=== PATIENT | female | born 1990 | race Caucasian/White ===

== ENCOUNTER 2017-08-29 14:29 | Outpatient (CLI) | payer BC ==
[2017-08-29 15:52] VITALS: PULSE 113; RESP 16; TEMP 97.5
[2017-08-29 17:23] VITALS: BP 115/74
--- NOTE | 2017-08-30 09:14 | P.MSEPDOC ---
Presenting Problems - Arrival Data Date of Arrival on Unit: 08/29/17 Time of Arrival on Unit: 14:29 Mode of Transport: Ambulatory - Complaint OB-Reason for Admission/Chief Complaint: Other Comment: bp increased at work with dizzyness Medical History - Information : 2 Para: 1 Term: 1 : 0 Abortions: Spontaneous or Elective: 0 Number of Living Children: 1 - Gestational Age Gestational Age by DIONICIO (wks/days): 36 Weeks and 5 Days - History Comment: no complications to this point Review of Systems - Review of Systems Constitutional: No problems Breast: No problems ENT: No problems Cardiovascular: No problems Respiratory: No problems Gastrointestinal: No problems Genitourinary: No problems Musculoskeletal: No problems Neurological: No problems Skin: No problems Vital Signs - Temperature Temperature: 97.5 F Temperature Source: Tympanic - Pulse Apical Pulse Rate: 113 Pulse Assessment Method: Automatic Cuff - Respirations Respiratory Rate: 16 Oxygen Delivery Method: Room Air O2 Sat by Pulse Oximetry: 99 - Blood Pressure Right Arm Blood Pressure: 115/74 Blood Pressure Mean: 87 Blood Pressure Source: Automatic Cuff Medical Screen Scoring (Pre) - Cervical Exam Dilation: Exam Deferred - Uterine Contractions Frequency: N/A Duration: N/A Intensity: N/A - Maternal Vital Signs Signs of Preeclampsia: N/A - Pain Assessment Pain Scale Used: Numeric (1 - 10) Pain Intensity: 0 Pain Behavior: Vocalization - Maternal Trauma Maternal Trauma: N/A - Assessment Baseline FHR: 150 Heart Rate - NICHD Category: Category I (Normal) = 0 NST: Reactive Position: N/A Station: N/A - Total Score Total Score (Pre): 0 - Level of Risk Level of Risk: Low (0-5) Physician Notification (Pre) - Physician Notified Physician Notified Date: 08/29/17 Physician Notified Time: 15:30 Physician/Practitioner Notifed:: mikael Spoke With: mikael New Order Received: Yes (may discharge home with followup in office) - Notification Comment Comment: pt denies dizzyness at this time. no signs of pih. appt for friday. bp's wnl Disposition - Disposition OB Disposition: Discharge to home Discharge Date: 08/29/17 Discharge Time: 16:15 I agree with the RN Medical Screening Exam: Yes Risk & Benefit of care provided described in d/c instruction: Yes Diagnosis: DIZZINESS AND GIDDINESS
== END 2017-08-29 16:15 | disposition home or self-care (01) ==
LOC: FBPOP 14:29
PROVIDERS: ATTEND Obstetrics & Gynecology
DX: O26.893 Other specified pregnancy related conditions, third trimester (principal); R42 Dizziness and giddiness; R03.0 Elevated blood-pressure reading, without diagnosis of hypertension; Z3A.36 36 weeks gestation of pregnancy
CPT/HCPCS: 59025; 99215

== ENCOUNTER 2017-09-09 23:13 | Inpatient (IN) | payer BC ==
[2017-09-09] MEDS ORDERED: LACTATED RINGERS 1,000 ML IV SCH (23:45)
[2017-09-09] MEDS ORDERED: CITRIC ACID-SODIUM CITRATE 15 ML CUP PO ONE (23:52)
[2017-09-09] MEDS ORDERED: ceFAZolin IN SWFI 2 GM/20 ML SYRINGE IVP ONE (23:52)
[2017-09-10 00:02] LABS: Basophils % (A) 0 %; Eosinophils # (A) 0.2 k/uL (0-0.7); Eosinophils % (A) 2 %; HCT 29.1 % (34.0-46.0); HGB 9.5 gm/dL (11.4-16.0); Hypochromasia Moderate; Lymphocytes # (A) 1.7 k/uL (1.0-4.8); Lymphocytes % (A) 19 %; MCH 24.7 pg (25.0-35.0); MCHC 32.6 g/dL (31.0-37.0); MCV 75.6 fL (80.0-100.0); Mean Platelet Volume 7.9; Microcytosis Slight; Monocytes # (A) 0.3 k/uL (0-1.0); Monocytes % (A) 3 %; Neutrophils # (A) 6.8 k/uL (1.3-7.7); Neutrophils % (A) 74 %; Platelet Count 326 k/uL (150-450); Poikilocytosis Slight; RBC 3.84 m/uL (3.80-5.40); RDW 14.8 % (11.5-15.5); WBC 9.2 k/uL (3.8-10.6)
--- NOTE | 2017-09-10 00:25 | P.HPOB ---
History of Present Illness H&P Date: 09/10/17 Chief Complaint: Leaking of fluid This patient is a pleasant 27-year-old 2 para 1 female estimated date of confinement 09/21/2017 estimated gestational age 38-3/7 weeks presents to labor and delivery complaining gush of fluid at 11 PM. Patient's care is per Dr. Liz it appears she had a severe shoulder dystocia with her first baby and has a planned for this delivery. care appears to be uncomplicated. Patient's found to have gross rupture membranes for some years dilated in early labor. Review of Systems Genitourinary: Reports Menstruation: Reports amenorrhea Past Medical History Past Medical History: No Reported History Additional Past Medical History / Comment(s): Patient had a vaginal delivery with her first with a significant shoulder dystocia. History of Any Multi-Drug Resistant Organisms: None Reported Past Surgical History: No Surgical Hx Reported Additional Past Surgical History / Comment(s): myringotomy with tubes Past Anesthesia/Blood Transfusion Reactions: No Reported Reaction Smoking Status: Never smoker Past Alcohol Use History: None Reported Past Drug Use History: None Reported - Past Family History Mother Family Medical History: Diabetes Mellitus, Hypertension Medications and Allergies Home Medications Medication Instructions Recorded Confirmed Type Pnv,Calcium 72/Iron/Folic Acid 1 tab PO DAILY 02/12/15 09/09/17 History [ Plus Tablet] Allergies Allergy/AdvReac Type Severity Reaction Status Date / Time No Known Allergies Allergy Verified 09/09/17 23:32 Exam - Vital Signs Vital signs: Vital Signs Temp Pulse Resp BP Pulse Ox 09/09/17 23:33 96.8 F L 100 16 132/84 100 Intake and Output 09/09/17 09/09/17 09/10/17 14:59 22:59 06:59 Other: Weight 96.162 kg - OBG Physical Exam Abdomen: bowel sounds normal, no diffuse tenderness, no bruit present, no guarding noted, no hepatomegaly, no splenomegaly, no mass Vulva: both: normal Cervix: Cervix is 4 cm dilated with gross rupture membranes. Uterus: enlarged Results blood work shows she is A+, rubella immune, RPR nonreactive, hepatitis B negative, HIV nonreactive, ultrasounds appear to have been normal, she failed her one-hour but had a normal three-hour gtt. Result Diagrams: 09/09/17 23:45 Abnormal Lab Results - Last 24 Hours (Table) 09/09/17 Range/Units 23:45 Hgb 9.5 L (11.4-16.0) gm/dL Hct 29.1 L (34.0-46.0) % MCV 75.6 L (80.0-100.0) fL MCH 24.7 L (25.0-35.0) pg Assessment and Plan Assessment: This is a pleasant 27-year-old 2 para 1 female 38-3/7 weeks gestation with spontaneous rupture membranes and history of severe shoulder dystocia first patient and her physician, Dr. Liz, have discussed delivery plan is for primary section. Patient understands this surgery and risks including risks of infection, bleeding, possible injury bowel, bladder, vessels, and/or other organs, and/or risk of DVT and pulmonary embolism. All the patient's questions been answered and a written consent is obtained. Plan is primary low transverse section. (1) Third trimester Current Visit: Yes Status: Acute Code(s): Z34.93 - ENCNTR FOR SUPRVSN OF NORMAL PREG, UNSP, THIRD TRIMESTER SNOMED Code(s): 28071998 (2) Shoulder dystocia during labor and delivery, delivered Current Visit: Yes Status: Acute Code(s): O66.0 - OBSTRUCTED LABOR DUE TO SHOULDER DYSTOCIA SNOMED Code(s): 59414673 (3) Spontaneous rupture of amniotic membranes Current Visit: Yes Status: Acute Code(s): EVH1420 - SNOMED Code(s): 724478608 (4) Group beta Strep positive Current Visit: Yes Status: Acute Code(s): B95.1 - STREPTOCOCCUS, GROUP B, CAUSING DISEASES CLASSD ELSR SNOMED Code(s): 5536130553930
[2017-09-10] MEDS ORDERED: ONDANSETRON 4 MG/2 ML VIAL ONE (00:27)
[2017-09-10] MEDS ORDERED: KETOROLAC 30 MG/ML 1 ML VIAL ONE (00:27)
[2017-09-10] MEDS ORDERED: OXYTOCIN 10 UNIT/ML 1 ML VIAL ONE (00:27)
[2017-09-10] MEDS ORDERED: MORPHINE SULFATE (PF) 0.3 MG/0.3 ML SYR ONE (00:27)
[2017-09-10] MEDS ORDERED: fentaNYL (PF) 50 MCG/ML 2 ML AMP ONE (00:27)
[2017-09-10] MEDS ORDERED: NALBUPHINE 10 MG/ML VIAL (10ML MDV) ONE (00:27)
[2017-09-10] MEDS ORDERED: LACTATED RINGERS 1,000 ML BAG IV ONE (00:27)
[2017-09-10] MEDS ORDERED: MORPHINE SULFATE 4 MG/ML SYRINGE IVP PRN (00:56)
[2017-09-10] MEDS ORDERED: diphenhydrAMINE 50 MG/ML 1 ML VIAL IVP PRN (00:56)
[2017-09-10] MEDS ORDERED: NALOXONE 0.4 MG/ML 1 ML VIAL IV PRN ×2 (00:56→01:18)
[2017-09-10] MEDS ORDERED: ONDANSETRON 4 MG/2 ML VIAL IVP PRN (00:56)
[2017-09-10] MEDS ORDERED: ACETAMINOPHEN TAB 325 MG TAB PO PRN (01:18)
[2017-09-10] MEDS ORDERED: SIMETHICONE 80 MG CHEWABLE PO PRN (01:18)
[2017-09-10] MEDS ORDERED: ZOLPIDEM 5 MG TAB PO PRN (01:18)
[2017-09-10] MEDS ORDERED: LANOLIN CREAM 5 GM TUBE TOPICAL PRN (01:18)
[2017-09-10] MEDS ORDERED: METOCLOPRAMIDE 5 MG/ML 2 ML VIAL IVP PRN (01:18)
--- NOTE | 2017-09-10 01:29 | P.OP ---
Date of Procedure: 09/10/17 Preoperative Diagnosis: #1: 38-3/7 weeks . #2: Spontaneous rupture membranes. #3: Previous severe shoulder dystocia. 4: Active labor Postoperative Diagnosis: Same, macrosomia Procedure(s) Performed: Primary low transverse section. Anesthesia: spinal Surgeon: Ajit Bocanegra Tobacco Sprayer #1: Luis Antonio Artis Estimated Blood Loss (ml): 800 Pathology: none sent Condition: stable Disposition: floor Indications for Procedure: Please see dictated H&P for intimate details of this patient's admission. Brief summary is a pleasant 27-year-old 2 para 1 female 38-3/7 weeks gestation who presents to labor and delivery with spontaneous rupture membranes at 11:00 this evening. She's had previous severe shoulder dystocia and has discussed this with Dr. Liz and elected to proceed with section for delivery with this . Patient does understand the surgery and its risks including risks of infection, bleeding, possible injury bowel, bladder, vessels, and/or other organs. All the patient's questions are answered and written consent is obtained. Operative Findings: This is a vigorous viable male Apgars 8 and 9 delivery time was 0051 hours. Grossly appears normal. weight was 9 lbs. 0 oz. Description of Procedure: This patient has a Patino catheter placed to straight drain. She is subsequently taken to the operating room where she sat up and spinal anesthetic is administered without incident. With an adequate level of anesthesia she has abdominal prep and drape. Scalpels then taken and a Pfannenstiel skin incision is made. A second scalpel is taken down the fascia the fascia scored with a knife. Fascial incision extended bilaterally using the Vidales scissors. Fascia is then dissected off the rectus muscles sharply. Rectus muscles are and the peritoneum was identified and entered sharply. Peritoneal incision extended superior and improved without difficulty. Bladder blade is then placed. The bladder peritoneum was taken down off the lower uterine segment sharply. Using a scalpel then make a low transverse uterine incision. Hemostat is then used to enter the uterine cavity is loss of clear fluid. This incision is then extended bluntly. Infant's head is then gently guided through the incision with fundal pressure delivered. Mouth and nares are bulb suctioned. There is no evidence of nuchal cord. We then have delivery anterior and posterior shoulder and rest this 's body. This is a vigorous viable male Apgars are 8 and 9 delivery time was 0051 hours. has spontaneous respirations and good cry and grossly appears normal. After delivery of the infant the umbilical cord is doubly clamped and cut and appears to be trivascular. The infant is then handed off to the nurses in attendance. The placenta is then manually extracted intact. Uterus is then externalized and uterine incision demarcated with Chambers clamps. Uterine incision then closed using 0 Vicryl running locked fashion 2 layers. Good hemostasis is noted. Bladder peritoneum was then reapproximated using a 3-0 Vicryl. Good hemostasis again is noted. Excess fluid is removed from the abdomen and pelvis. Uterus, tubes, ovaries appear normal for term gestation. Uterus placed back into the abdomen. Parietal peritoneum was then demarcated with hemostats. Inspect uterine incision one more time and appears to be intact and hemostatic. Peritoneum was then closed using 0 Vicryl running fashion. Rectus muscles reapproximated in 0 Vicryl interrupted fashion. Fascia is then closed using 0 PDS in a running fashion. Fascial incision is intact and hemostatic. Subcutaneous tissues and closed using a 3-0 Vicryl. Skin is and closed using david. Sterile dressing is applied. All counts are correct 3. There are no complications. and mother are taken to the birthing suite in satisfactory condition.
[2017-09-10] MEDS ORDERED: OXYTOCIN 20 UNITS/1000 ML NS 1,000 ML IV SCH (01:30)
--- NOTE | 2017-09-10 01:32 | P.MSEPDOC ---
Presenting Problems - Arrival Data Date of Arrival on Unit: 09/09/17 Time of Arrival on Unit: 23:10 Mode of Transport: Wheelchair - Complaint OB-Reason for Admission/Chief Complaint: Rule Out SROM Comment: clear fluid from vagina at 2300 Medical History - Information : 2 Para: 1 Term: 1 : 0 Abortions: Spontaneous or Elective: 0 Number of Living Children: 1 - Gestational Age Gestational Age by DIONICIO (wks/days): 38 Weeks and 2 Days Review of Systems - Review of Systems Constitutional: No problems Breast: No problems ENT: No problems Cardiovascular: No problems Respiratory: No problems Gastrointestinal: No problems Genitourinary: No problems Musculoskeletal: No problems Neurological: No problems Skin: No problems Vital Signs - Temperature Temperature: 96.8 F Temperature Source: Temporal Artery Scan - Pulse Right Sitting Brachial Pulse Rate: 100 Pulse Assessment Method: Automatic Cuff - Respirations Respiratory Rate: 16 O2 Sat by Pulse Oximetry: 98 - Blood Pressure Right Arm Blood Pressure: 132/84 Blood Pressure Mean: 100 Blood Pressure Source: Automatic Cuff Medical Screen Scoring (Pre) - Cervical Exam Dilation: 4-7 cm = 2 Effacement: More than 50% = 2 Membranes: Ruptured = 3 - Uterine Contractions Frequency: Scheduled / = 6 Duration: N/A Intensity: N/A - Maternal Vital Signs Maternal Temperature: N/A Maternal Blood Pressure: N/A Signs of Preeclampsia: N/A Maternal Respirations: N/A - Pain Assessment Pain Intensity: 0 Pain Management Goal: 2 - Maternal Trauma Maternal Trauma: N/A - Assessment Baseline FHR: 130 Heart Rate - NICHD Category: Category I (Normal) = 0 NST: Reactive Position: N/A Station: N/A - Total Score Total Score (Pre): 13 - Level of Risk Level of Risk: High (10+) Physician Notification (Pre) - Physician Notified Physician Notified Date: 09/09/17 Physician Notified Time: 23:39 Physician/Practitioner Notifed:: Sahra Espinal Order Received: Yes - Notification Comment Comment: admit Disposition - Disposition OB Disposition: Admit, LDRP Suite I agree with the RN Medical Screening Exam: Yes Risk & Benefit of care provided described in d/c instruction: Yes Diagnosis: ENCOUNTER FOR FULL-TERM UNCOMPLICATED DELIVERY
[2017-09-10] MEDS ORDERED: SENNOSIDES-DOCUSATE SODIUM 1 EACH TAB PO ONE (09:00)
[2017-09-10] MEDS: LACTATED RINGERS 1,000 ML IV SCH ×2 (14:14→18:43)
[2017-09-10] MEDS: SENNOSIDES-DOCUSATE SODIUM 1 EACH TAB PO SCH (14:14)
[2017-09-10] MEDS: KETOROLAC 30 MG/ML 1 ML VIAL IVP PRN (22:22)
[2017-09-11] MEDS: SENNOSIDES-DOCUSATE SODIUM 1 EACH TAB PO SCH ×3 (00:31→20:00)
[2017-09-11] MEDS: LACTATED RINGERS 1,000 ML IV SCH ×2 (04:29→10:44)
[2017-09-11] MEDS: KETOROLAC 30 MG/ML 1 ML VIAL IVP PRN (07:43)
[2017-09-11 07:45] LABS: Basophils % (A) 0 %; Eosinophils # (A) 0.1 k/uL (0-0.7); Eosinophils % (A) 2 %; HGB 9.1 gm/dL (11.4-16.0); Hypochromasia Moderate; Lymphocytes # (A) 1.3 k/uL (1.0-4.8); Lymphocytes % (A) 15 %; MCH 23.9 pg (25.0-35.0); MCHC 31.4 g/dL (31.0-37.0); Mean Platelet Volume 8.2; Microcytosis Slight; Monocytes # (A) 0.3 k/uL (0-1.0); Monocytes % (A) 4 %; Neutrophils # (A) 7.2 k/uL (1.3-7.7); Neutrophils % (A) 79 %; Platelet Count 299 k/uL (150-450); Poikilocytosis Slight; RBC 3.82 m/uL (3.80-5.40); RDW 14.9 % (11.5-15.5); WBC 9.2 k/uL (3.8-10.6)
--- NOTE | 2017-09-11 08:02 | P.PNOBGPC ---
Subjective - Subjective Principal diagnosis: S/P 1*LTCS POD #1 Interval history: Pt seen and examined. Denies N/V, F/C, CP, SOB, calf pain. Patient reports: Reports appetite normal, Reports voiding normally, Reports pain well controlled, Reports ambulating normally [place]: doing well Objective - Vital Signs Latest vital signs: Vital Signs Temp Pulse Resp BP Pulse Ox 09/11/17 00:00 98.6 F 88 18 118/72 98 09/10/17 20:00 98.8 F 85 18 112/64 98 09/10/17 16:00 98.1 F 84 16 121/75 98 09/10/17 12:00 97.8 F 78 16 114/78 97 Intake and Output 09/10/17 09/11/17 09/11/17 22:59 06:59 14:59 Output Total 760 500 Balance -760 -500 Output: Urine 760 500 Other: # Voids 1 - Exam Lungs: bilateral: normal Chest: Normal S1, Normal S2 Extremities: Present: normal Abdomen: Present: normal appearance, soft. Absent: distention, tenderness Incision: Present: normal, dry, intact Uterus: Present: normal, firm - Labs Labs: Abnormal Lab Results - Last 24 Hours (Table) 09/11/17 Range/Units 07:22 Hgb 9.1 L (11.4-16.0) gm/dL Hct 29.0 L (34.0-46.0) % MCV 76.0 L (80.0-100.0) fL MCH 23.9 L (25.0-35.0) pg Assessment and Plan (1) Status post primary low transverse section Current Visit: Yes Status: Acute Code(s): Z98.891 - HISTORY OF UTERINE SCAR FROM PREVIOUS SURGERY SNOMED Code(s): 608467499 Plan: 1. increase ambulation. 2. po pain meds
--- NOTE | 2017-09-11 10:31 | P.PN ---
Progress Note - Text Date: 09/11/2017 Time: 0 721 The patient is status post section Vital signs stable VAS: 0-10 Patient has no complaints of pain. The patient incurred some minimal itching yesterday, this itching is now subsiding. Pain meds to be managed by service.
[2017-09-11] MEDS: Acetaminophen-Codeine 300-30mg TAB PO PRN ×2 (11:00→20:00)
[2017-09-11] MEDS: IBUPROFEN 600 MG TAB PO PRN (16:15)
[2017-09-12] MEDS: IBUPROFEN 600 MG TAB PO PRN (01:59)
[2017-09-12] MEDS: Acetaminophen-Codeine 300-30mg TAB PO PRN (07:57)
[2017-09-12] MEDS: SENNOSIDES-DOCUSATE SODIUM 1 EACH TAB PO SCH (07:57)
[2017-09-12 08:19] VITALS: BP 115/68; PULSE 90; RESP 16; TEMP 97.8
== END 2017-09-12 12:10 | disposition home or self-care (01) | DRG 766 ==
LOC: FBPOP 23:13 → 4FBP 23:42
PROVIDERS: ADMIT Obstetrics & Gynecology; ATTEND Obstetrics & Gynecology
PROC: 10D00Z1 Extraction of Products of Conception, Low, Open Approach (ICD-10-PCS; principal; 2017-09-10 00:05)
DX: O75.82 Onset (spontaneous) of labor after 37 completed weeks of gestation but before 39 completed weeks gestation, with delivery by (planned) cesarean section (principal); Z37.0 Single live birth; O34.211 Maternal care for low transverse scar from previous cesarean delivery; Z3A.38 38 weeks gestation of pregnancy; O99.824 Streptococcus B carrier state complicating childbirth; O36.63X0 Maternal care for excessive fetal growth, third trimester, not applicable or unspecified; Z79.899 Other long term (current) drug therapy; Z83.3 Family history of diabetes mellitus; Z82.49 Family history of ischemic heart disease and other diseases of the circulatory system
CPT/HCPCS: 59025; 84112; 85025; 86850; 86900; 86901; 99213

== ENCOUNTER 2019-12-27 09:47 | Outpatient (CLI) | payer BC ==
[2019-12-27 10:56] VITALS: BP 119/66; PULSE 83; RESP 16; TEMP 97
--- NOTE | 2020-01-03 08:41 | P.MSEPDOC ---
Presenting Problems - Arrival Data Date of Arrival on Unit: 12/27/19 Time of Arrival on Unit: 09:53 Mode of Transport: Ambulatory - Complaint OB-Reason for Admission/Chief Complaint: Possible Onset of Labor Medical History - Information : 3 Para: 2 Term: 2 : 0 Abortions: Spontaneous or Elective: 0 Number of Living Children: 2 - Gestational Age Gestational Age by DIONICIO (wks/days): 29 Weeks and 6 Days - History Complications: GDM Review of Systems - Review of Systems Constitutional: No problems Breast: No problems ENT: No problems Cardiovascular: No problems Respiratory: No problems Gastrointestinal: No problems Genitourinary: No problems Musculoskeletal: No problems Neurological: No problems Skin: No problems Vital Signs - Temperature Temperature: 97.0 F Temperature Source: Temporal Artery Scan - Pulse Right Pulse Rate: 83 Pulse Assessment Method: Automatic Cuff - Respirations Respiratory Rate: 16 Oxygen Delivery Method: Room Air O2 Sat by Pulse Oximetry: 98 - Blood Pressure Right Arm Blood Pressure: 119/66 Blood Pressure Mean: 83 Blood Pressure Source: Automatic Cuff Medical Screen Scoring (Pre) - Cervical Exam Dilation: 0 cm = 0 Membranes: Intact - Uterine Contractions Frequency: N/A Duration: N/A Intensity: N/A - Maternal Vital Signs Maternal Temperature: N/A Maternal Blood Pressure: N/A Signs of Preeclampsia: N/A Maternal Respirations: N/A - Maternal Trauma Maternal Trauma: N/A - Assessment - Baby A Baseline FHR: 135 Heart Rate - NICHD Category: Category I (Normal) = 0 NST: Reactive Position: N/A Station: N/A - Total Score - Baby A Total Score - Baby A: 0 - Total Score - Baby B Total Score - Baby B: 0 - Total Score - Baby C Total Score - Baby C: 0 - Level of Risk - Baby A Level of Risk - Baby A: Low (0-5) - Level of Risk - Baby B Level of Risk - Baby B: Low (0-5) - Level of Risk - Baby C Level of Risk - Baby C: Low (0-5) Physician Notification (Pre) - Physician Notified Physician Notified Date: 12/27/19 Physician Notified Time: 10:45 New Order Received: Yes (discharge home if closed) Disposition - Disposition OB Disposition: Discharge to home Discharge Date: 12/27/19 Discharge Time: 10:55 I agree with the RN Medical Screening Exam: Yes Risk & Benefit of care provided described in d/c instruction: Yes Diagnosis: FALSE LABOR BEFORE 37 COMPLETED WEEKS OF GEST, THIRD TRI
== END 2019-12-27 10:55 | disposition home or self-care (01) ==
LOC: FBPOP 09:47
PROVIDERS: ATTEND Obstetrics & Gynecology
DX: O47.03 False labor before 37 completed weeks of gestation, third trimester (principal); Z3A.29 29 weeks gestation of pregnancy
CPT/HCPCS: 59025; 99213

== ENCOUNTER 2020-02-12 02:54 | Inpatient (IN) | payer BC ==
[2020-02-12] MEDS ORDERED: LACTATED RINGERS 1,000 ML IV ONE (03:20)
[2020-02-12] MEDS ORDERED: CITRIC ACID-SODIUM CITRATE 15 ML CUP PO ONE (03:20)
[2020-02-12] MEDS ORDERED: LACTATED RINGERS 1,000 ML IV SCH (03:30)
[2020-02-12 03:48] LABS: Glucose,Whole Blood 97 mg/dL (75-99)
[2020-02-12] MEDS ORDERED: KETOROLAC 15 MG/ML 1 ML VIAL ONE (04:17)
[2020-02-12] MEDS ORDERED: ONDANSETRON 4 MG/2 ML VIAL ONE (04:17)
[2020-02-12] MEDS ORDERED: OXYTOCIN 10 UNIT/ML 1 ML VIAL ONE (04:17)
[2020-02-12] MEDS ORDERED: MORPHINE SULFATE (PF) 0.3 MG/0.3 ML SYR ONE (04:17)
[2020-02-12 04:24] LABS: Basophils % (A) 0 %; Eosinophils # (A) 0.1 k/uL (0-0.7); Eosinophils % (A) 2 %; HCT 33.6 % (34.0-46.0); HGB 10.6 gm/dL (11.4-16.0); Hypochromasia Slight; Lymphocytes # (A) 2.1 k/uL (1.0-4.8); Lymphocytes % (A) 28 %; MCH 24.2 pg (25.0-35.0); MCHC 31.5 g/dL (31.0-37.0); MCV 76.9 fL (80.0-100.0); Mean Platelet Volume 8.3; Microcytosis Slight; Monocytes # (A) 0.3 k/uL (0-1.0); Monocytes % (A) 4 %; Neutrophils # (A) 4.9 k/uL (1.3-7.7); Neutrophils % (A) 64 %; Platelet Count 298 k/uL (150-450); RBC 4.37 m/uL (3.80-5.40); RDW 14.8 % (11.5-15.5); WBC 7.6 k/uL (3.8-10.6)
--- NOTE | 2020-02-12 04:29 | P.HPOB ---
History of Present Illness H&P Date: 02/12/20 Chief Complaint: Spontaneous rupture of membranes This is a 29-year-old female 3 para 2 with an estimated date of confinement of 03/07/2020, estimated gestational age of 36-4/7 weeks, who presents to labor and delivery with complaints of spontaneous rupture of membra samy with clear fluid noted. She is feeling irregular contractions. Her course has been complicated by gestational diabetes on metformin. She states her fasting sugars have been slightly high. course has otherwise been uncomplicated. She is scheduled for a repeat section due to history of macrosomia and a severe shoulder dystocia with her first delivery. labs: GC/chlamydia/Trichomonas-negative Hepatitis B surface antigen-negative RPR-nonreactive Rubella-immune Blood type-A+ Antibody screen-negative Hemoglobin-11.9 Random glucose-78 Obstetrical ultrasound-normal anatomy One hour Glucola-165 Three-hour Glucola-2 values high Group B streptococcus-negative Obstetrical history: . History of 1 vaginal delivery at term with severe shoulder dystocia. Second delivery was an elective section. Gynecologic history: Noncontributory Social history: She is . She works at a [employer]. Review of Systems Constitutional: Denies chills, Denies fever Eyes: denies blurred vision, denies pain Ears, nose, mouth and throat: Denies headache, Denies sore throat Cardiovascular: Denies chest pain, Denies shortness of breath Respiratory: Denies cough Gastrointestinal: Reports abdominal pain (Irregular contractions) Genitourinary: Reports pelvic pain Musculoskeletal: Reports low back pain Integumentary: Denies pruritus, Denies rash Neurological: Denies numbness, Denies weakness Psychiatric: Denies anxiety, Denies depression Past Medical History Past Medical History: Diabetes Mellitus (Gestational) Additional Past Medical History / Comment(s): Patient had a vaginal delivery with her first with a significant shoulder dystocia and C/S with second History of Any Multi-Drug Resistant Organisms: None Reported Past Surgical History: Section Additional Past Surgical History / Comment(s): myringotomy with tubes Past Anesthesia/Blood Transfusion Reactions: No Reported Reaction Past Psychological History: No Psychological Hx Reported Smoking Status: Never smoker Past Alcohol Use History: None Reported Past Drug Use History: None Reported - Past Family History Mother Family Medical History: Diabetes Mellitus, Hypertension Medications and Allergies Home Medications Medication Instructions Recorded Confirmed Type Pnv,Calcium 72/Iron/Folic Acid 1 tab PO DAILY 02/12/15 02/12/20 History [ Plus Tablet] Iron 18 mg PO DAILY 12/27/19 02/12/20 History metFORMIN HCL [Glucophage] 1 PO DAILY 02/12/20 History Allergies Allergy/AdvReac Type Severity Reaction Status Date / Time No Known Allergies Allergy Verified 12/27/19 09:50 Exam Osteopathic Statement: *. No significant issues noted on an osteopathic structural exam other than those noted in the History and Physical/Consult. Vital Signs Temp Pulse Resp BP Pulse Ox 02/12/20 03:36 98.8 F 89 18 133/91 100 Intake and Output 02/11/20 02/11/20 02/12/20 14:59 22:59 06:59 Other: Weight 99.79 kg HEENT: Within normal limits Heart: Regular rate and rhythm Lungs: Clear to auscultation bilaterally Abdomen: Cervix: 2 cm/thick/-2 station. Positive amnisure with grossly ruptured clear fluid. heart tones: Category 1 Contractions: Every 2-5 minutes Extremities: Negative Homans Assessment and Plan (1) Previous delivery affecting Current Visit: Yes Status: Acute Code(s): O34.219 - MATERNAL CARE FOR UNSP TYPE SCAR FROM PREVIOUS DEL SNOMED Code(s): 070410439 (2) Gestational diabetes mellitus (GDM) controlled on oral hypoglycemic drug Current Visit: Yes Status: Acute Code(s): O24.415 - GESTATNL DIABETES IN PREG, CTRL BY ORAL HYPOGLYCEMIC DRUGS SNOMED Code(s): 39646897 (3) Spontaneous rupture of amniotic membranes Current Visit: No Status: Acute Code(s): GQR9363 - SNOMED Code(s): 342590651 Plan: Proceed with repeat section. Will monitor sugars. I have discussed the risks, benefits, and alternative therapies for the above- mentioned procedure and for both sedation/anesthesia as well as necessary blood products administration, if indicated, as they pertain to this patient. The patient has indicated her understanding and acceptance of the risks and procedures discussed.
--- NOTE | 2020-02-12 05:16 | P.OP ---
Date of Procedure: 02/12/20 Preoperative Diagnosis: 1. Intrauterine at 36-4/7 weeks. 2. History of previous section. 3. Gestational diabetes on metformin. 4. Active labor. Postoperative Diagnosis: Same Procedure(s) Performed: Repeat low transverse section Anesthesia: spinal (Duramorph) Surgeon: Chantell Cue[employer] Machine Set Up Operator #1: Luis Antonio Artis Estimated Blood Loss (ml): 500 Pathology: other (Placenta) Condition: stable Disposition: floor Indications for Procedure: This is a 29-year-old female 3 para 2 at 36-4/7 weeks who presented with spontaneous rupture of membranes and contractions. She has a history of a previous section and has consented to repeat section. I have discussed the risks, benefits, and alternative therapies for the above- mentioned procedure and for both sedation/anesthesia as well as necessary blood products administration, if indicated, as they pertain to this patient. The patient has indicated her understanding and acceptance of the risks and procedures discussed. Operative Findings: A viable male infant is noted in the vertex presentation with nuchal cord times one. scores are 8 at 1 minute and 8 at 5 minutes and weight is 6 lbs. 9 oz. Normal uterus tubes and ovaries are noted. Description of Procedure: The patient is taken to the operating room where she is placed in the dorsal supine position with leftward tilt after spinal Duramorph anesthesia is given. She is prepped and draped in the normal sterile fashion. Skin was tested and found to be adequately anesthetized. A Pfannenstiel skin incision was made with a scalpel through the previous laparotomy scar. A second knife was used to carry the incision down to the underlying layer of fascia. The fascia was nicked in the midline with a scalpel and then extended laterally bilaterally with Vidales scissors. The anterior lip of the fascia was grasped with 2 Ashok clamps and then dissected off the underlying rectus muscle in the midline with Vidales scissors. The inferior aspect of the fascial incision was grasped with 2 Ashok clamps and dissected off the underlying rectus muscle and the midline with Vidales scissors. Next the peritoneum layer was tented up with 2 hemostats and then entered sharply with the scalpel. The incision is extended superiorly and inferiorly with Metzenbaum scissors. Next a DeLee retractor is placed. The vesicouterine peritoneum is entered sharply with Metzenbaum scissors and extended laterally bilaterally with Metzenbaum scissors and then the bladder flap is pushed inferiorly. The lower uterine segment is incised in transverse fashion with the scalpel and then bluntly entered with a hemostat. Clear fluid is noted. The incision was then extended laterally bilaterally with 2 fingers. Next the 's head is delivered through the incision. Nose and mouth are bulb suctioned. Nuchal cord 1 is reduced around the infant's head. The remainder of the is easily delivered and placed on mother's abdomen. Cord is clamped and cut. Infant is taken to warmer by nursing staff. Uterine fundus is gently massaged and placenta is delivered manually. Uterus is exteriorized and cleared of all clots and debris. Uterine incision is closed with 0 Vicryl suture in a running locked fashion. A second layer of 0 Vicryl suture is used in a running fashion for hemostasis. The vesicouterine peritoneum was not reapproximated but was noted to be hemostatic. Posterior cul-de-sac is suctioned of all clots and debris. Uterus is returned to the abdomen. Incision is noted to be hemostatic. Peritoneal layer is closed with 0 Vicryl suture in a running fashion. Muscle layer is reapproximated with 0 Vicryl suture in interrupted fashion. Fascia layer is then closed with 0 PDS suture with 2 sutures meeting in the midline and the knots buried in either side and in the midline. The subcutaneous tissue was then closed with 2-0 Vicryl suture. Skin layer was then closed with david. All sponge and needle counts are correct. The patient is taken to recovery room in stable condition.
[2020-02-12] MEDS ORDERED: ONDANSETRON 4 MG/2 ML VIAL IVP PRN (05:37)
[2020-02-12] MEDS ORDERED: diphenhydrAMINE 50 MG CAP PO PRN (05:37)
[2020-02-12] MEDS ORDERED: LANOLIN CREAM 5 GM TUBE TOPICAL PRN (05:37)
[2020-02-12] MEDS ORDERED: diphenhydrAMINE 50 MG/ML 1 ML VIAL IVP PRN (05:37)
[2020-02-12] MEDS ORDERED: SIMETHICONE 80 MG CHEWABLE PO PRN (05:37)
[2020-02-12] MEDS ORDERED: HYDROcodone/APAP 7.5-325MG 1 EACH TAB PO PRN (05:37)
[2020-02-12] MEDS ORDERED: diphenhydrAMINE 25 MG CAP PO PRN (05:37)
[2020-02-12] MEDS ORDERED: METOCLOPRAMIDE 5 MG/ML 2 ML VIAL IVP PRN (05:37)
[2020-02-12] MEDS ORDERED: ACETAMINOPHEN TAB 325 MG TAB PO PRN (05:37)
[2020-02-12] MEDS ORDERED: NALOXONE 0.4 MG/ML 1 ML VIAL IV PRN (05:37)
[2020-02-12] MEDS ORDERED: ZOLPIDEM 5 MG TAB PO PRN (05:37)
[2020-02-12] MEDS: LACTATED RINGERS 1,000 ML IV SCH ×3 (06:17→21:50)
[2020-02-12] MEDS ORDERED: OXYTOCIN 20 UNITS/1000 ML NS 1,000 ML IV SCH (07:00)
[2020-02-12] MEDS: diphenhydrAMINE 50 MG/ML 1 ML VIAL IVP PRN ×2 (07:27→13:39)
[2020-02-12] MEDS: SENNOSIDES-DOCUSATE SODIUM 1 EACH TAB PO SCH ×2 (13:40→20:43)
[2020-02-12] MEDS: PRENATAL VIT-IRON-FOLIC ACID 1 EACH CAP PO SCH (13:40)
[2020-02-12] MEDS: NON FORMULARY DRUG (Iron [Iron] 18 MG Tablet) PO SCH (13:40)
[2020-02-12] MEDS: KETOROLAC 15 MG/ML 1 ML VIAL IVP PRN (20:43)
[2020-02-13] MEDS: KETOROLAC 15 MG/ML 1 ML VIAL IVP PRN (06:53)
[2020-02-13 06:54] LABS: Basophils % (A) 0 %; Eosinophils # (A) 0.1 k/uL (0-0.7); Eosinophils % (A) 2 %; HCT 29.2 % (34.0-46.0); HGB 9.9 gm/dL (11.4-16.0); Lymphocytes % (A) 15 %; MCH 25.6 pg (25.0-35.0); MCHC 33.8 g/dL (31.0-37.0); MCV 75.7 fL (80.0-100.0); Mean Platelet Volume 8.3; Microcytosis Slight; Monocytes # (A) 0.3 k/uL (0-1.0); Monocytes % (A) 4 %; Neutrophils # (A) 5.4 k/uL (1.3-7.7); Neutrophils % (A) 78 %; Platelet Count 250 k/uL (150-450); RBC 3.85 m/uL (3.80-5.40); RDW 14.7 % (11.5-15.5)
--- NOTE | 2020-02-13 07:59 | P.PN ---
Progress Note - Text Date: 02/13/2020 Time: 07:47 The patient is status post section Vital signs stable VAS:[ 0-10] Patient has no complaints of pain. The patient incurred some minimal itching and nausea yesterday, the itching and nausea have since subsided. Pain meds to be managed by service.
[2020-02-13] MEDS: SENNOSIDES-DOCUSATE SODIUM 1 EACH TAB PO SCH ×2 (08:41→19:18)
[2020-02-13] MEDS: IBUPROFEN 600 MG TAB PO PRN ×2 (10:40→16:01)
--- NOTE | 2020-02-13 11:58 | P.PNOBGPC ---
Subjective - Subjective Principal diagnosis: Status post repeat section POD #1 Interval history: Patient is doing well. She is ambulating. She is passing a small amount of flatus. Denies any bowel movement yet. Lochia is minimal. Pain is well- controlled. Baby is in level I nursery currently. Patient reports: Reports appetite normal, Reports voiding normally, Reports pain well controlled, Reports ambulating normally [place]: doing well, other (In level I nursery) Objective - Vital Signs Latest vital signs: Vital Signs Temp Pulse Resp BP Pulse Ox 02/13/20 08:00 98.2 F 87 14 123/82 02/13/20 04:00 98.2 F 77 16 104/68 02/13/20 00:00 98.2 F 74 16 111/72 02/12/20 15:39 97.8 F 81 16 126/80 02/12/20 12:00 98.3 F 75 16 128/68 98 Intake and Output 02/12/20 02/13/20 02/13/20 22:59 06:59 14:59 Intake Total 120 Output Total 300 Balance -180 Intake: Oral 120 Output: Urine 300 - Exam Extremities: Present: normal. Absent: edema Abdomen: Present: normal appearance, soft (Positive bowel sounds 4). Absent: distention, tenderness Incision: Present: normal, dry, intact. Absent: erythematous Uterus: Present: normal, firm. Absent: tenderness - Labs Labs: Abnormal Lab Results - Last 24 Hours (Table) 02/13/20 Range/Units 06:30 Hgb 9.9 L (11.4-16.0) gm/dL Hct 29.2 L (34.0-46.0) % MCV 75.7 L (80.0-100.0) fL Assessment and Plan Assessment: Status post repeat low transverse section postoperative day #1 (1) Previous delivery affecting Current Visit: Yes Status: Acute Code(s): O34.219 - MATERNAL CARE FOR UNSP TYPE SCAR FROM PREVIOUS DEL SNOMED Code(s): 083054964 (2) Gestational diabetes mellitus (GDM) controlled on oral hypoglycemic drug Current Visit: Yes Status: Acute Code(s): O24.415 - GESTATNL DIABETES IN PREG, CTRL BY ORAL HYPOGLYCEMIC DRUGS SNOMED Code(s): 44272699 (3) Spontaneous rupture of amniotic membranes Current Visit: No Status: Acute Code(s): ODY9223 - SNOMED Code(s): 925026357 Plan: Continue postoperative and care. Encouraged ambulation. Advance diet as tolerated.
[2020-02-13 16:03] VITALS: RESP 16
[2020-02-13] MEDS: HYDROcodone/APAP 5-325MG 1 EACH TAB PO PRN ×2 (18:08→22:40)
[2020-02-13] MEDS: NON FORMULARY DRUG (Iron [Iron] 18 MG Tablet) PO SCH (18:10)
[2020-02-13] MEDS: PRENATAL VIT-IRON-FOLIC ACID 1 EACH CAP PO SCH (18:10)
[2020-02-14] MEDS: HYDROcodone/APAP 5-325MG 1 EACH TAB PO PRN ×3 (06:02→23:51)
[2020-02-14] MEDS: SENNOSIDES-DOCUSATE SODIUM 1 EACH TAB PO SCH ×2 (07:57→20:35)
[2020-02-14] MEDS: PRENATAL VIT-IRON-FOLIC ACID 1 EACH CAP PO SCH (10:05)
[2020-02-14] MEDS: NON FORMULARY DRUG (Iron [Iron] 18 MG Tablet) PO SCH (10:06)
[2020-02-14] MEDS: IBUPROFEN 600 MG TAB PO PRN ×2 (12:09→20:33)
[2020-02-15] MEDS: IBUPROFEN 600 MG TAB PO PRN ×2 (06:43→16:18)
--- NOTE | 2020-02-15 07:51 | P.PNOBGPC ---
Subjective - Subjective Principal diagnosis: S/P RLTCS POD #2 Interval history: Pt seen and examined. Denies N/V, F/C, CP, SOB, calf pain. Patient reports: Reports appetite normal, Reports voiding normally, Reports pain well controlled, Reports ambulating normally [place]: doing well Objective - Vital Signs Latest vital signs: Vital Signs Temp Pulse Resp BP Pulse Ox 02/15/20 00:13 98.0 F 82 16 125/80 98 02/14/20 15:41 98.1 F 75 16 135/67 02/14/20 12:00 97.7 F 74 16 140/89 02/14/20 07:53 98.1 F 73 16 136/90 98 - Exam Lungs: bilateral: normal Chest: Normal S1, Normal S2 Extremities: Present: normal Abdomen: Present: normal appearance, soft. Absent: distention, tenderness Incision: Present: normal, dry, intact Uterus: Present: normal, firm Assessment and Plan (1) Status post repeat low transverse section Current Visit: Yes Status: Acute Code(s): Z98.891 - HISTORY OF UTERINE SCAR FROM PREVIOUS SURGERY SNOMED Code(s): 515380200 Plan: 1. increase ambulation 2. cont pain control
--- NOTE | 2020-02-15 07:53 | P.PNOBGPC ---
Subjective - Subjective Principal diagnosis: S/P RLTCS POD #3 Interval history: Pt seen and examined. c/o cold sore starting. Denies N/V, F/C, CP, SOB, calf pain Patient reports: Reports appetite normal, Reports voiding normally, Reports pain well controlled, Reports ambulating normally : doing well Objective - Vital Signs Latest vital signs: Vital Signs Temp Pulse Resp BP Pulse Ox 02/15/20 00:13 98.0 F 82 16 125/80 98 02/14/20 15:41 98.1 F 75 16 135/67 02/14/20 12:00 97.7 F 74 16 140/89 02/14/20 07:53 98.1 F 73 16 136/90 98 - Exam Lungs: bilateral: normal Chest: Normal S1, Normal S2 Extremities: Present: normal Abdomen: Present: normal appearance, soft. Absent: distention, tenderness Incision: Present: normal, dry, intact Uterus: Present: normal, firm Assessment and Plan (1) Status post repeat low transverse section Current Visit: Yes Status: Acute Code(s): Z98.891 - HISTORY OF UTERINE SCAR FROM PREVIOUS SURGERY SNOMED Code(s): 765070187 (2) Cold sore Current Visit: Yes Status: Acute Code(s): B00.1 - HERPESVIRAL VESICULAR DERMATITIS SNOMED Code(s): 9342206 Plan: 1. valtrex for cold sore 2. cont po care 3. possible d/c home later today
[2020-02-15] MEDS: HYDROcodone/APAP 5-325MG 1 EACH TAB PO PRN (08:55)
[2020-02-15] MEDS: SENNOSIDES-DOCUSATE SODIUM 1 EACH TAB PO SCH ×2 (08:56→21:23)
[2020-02-15] MEDS: PRENATAL VIT-IRON-FOLIC ACID 1 EACH CAP PO SCH (09:01)
[2020-02-15] MEDS: valACYclovir HCL 1,000 MG TABLET PO SCH (09:01)
[2020-02-15] MEDS: NON FORMULARY DRUG (Iron [Iron] 18 MG Tablet) PO SCH (09:02)
[2020-02-16] MEDS: HYDROcodone/APAP 5-325MG 1 EACH TAB PO PRN (00:17)
[2020-02-16] MEDS: IBUPROFEN 600 MG TAB PO PRN (07:35)
[2020-02-16 07:47] VITALS: BP 136/85; PULSE 71; TEMP 98.3
--- NOTE | 2020-02-16 07:59 | P.DS ---
Providers Date of admission: 02/12/20 03:17 Expected date of discharge: 02/16/20 Attending physician: Evette Liz Primary care physician: Stated None - Discharge Diagnosis(es) (1) Status post repeat low transverse section Current Visit: Yes Status: Acute (2) Cold sore Current Visit: Yes Status: Acute Hospital Course: Pt presented with SROM. She underwent a repeat low transverse . PO course was uncomplicated. She is ambulating and voiding without difficulty. Elisa erating a reg diet, passing flatus and pain is well controlled. she denies N/V, F/C, CP, SOB or calf pain. She will be discharged home POD #4 in stable condition to follow up with me in 1 week. Plan - Discharge Summary New Discharge Prescriptions: New Ibuprofen [Motrin] 600 mg PO Q6HR PRN #30 tab PRN Reason: Mild Pain Or Fever >= 100.5 HYDROcodone/APAP 7.5-325MG [Newcomb 7.5-325] 1 each PO Q6H PRN #12 tab PRN Reason: Severe Pain valACYclovir HCL [Valtrex] 1,000 mg PO DAILY 3 Days #3 tab No Action Pnv,Calcium 72/Iron/Folic Acid [ Plus Tablet] 1 tab PO DAILY Iron 18 mg PO DAILY metFORMIN HCL [Glucophage] 1 PO DAILY Discharge Medication List Pnv,Calcium 72/Iron/Folic Acid [ Plus Tablet] 1 tab PO DAILY 02/12/15 [History] Iron 18 mg PO DAILY 12/27/19 [History] metFORMIN HCL [Glucophage] 1 PO DAILY 02/12/20 [History] HYDROcodone/APAP 7.5-325MG [Newcomb 7.5-325] 1 each PO Q6H PRN #12 tab 02/15/20 [Rx] Ibuprofen [Motrin] 600 mg PO Q6HR PRN #30 tab 02/15/20 [Rx] valACYclovir HCL [Valtrex] 1,000 mg PO DAILY 3 Days #3 tab 02/15/20 [Rx] Follow up Appointment(s)/Referral(s): Evette Liz DO [Doctor of Osteopathic Medicine] - 1 Week Discharge Disposition: HOME SELF-CARE
[2020-02-16] MEDS: valACYclovir HCL 1,000 MG TABLET PO SCH (09:20)
[2020-02-16] MEDS: PRENATAL VIT-IRON-FOLIC ACID 1 EACH CAP PO SCH (09:20)
== END 2020-02-16 11:52 | disposition home or self-care (01) | DRG 787 ==
LOC: FBPOP 02:54 → 4FBP 03:17
PROVIDERS: ADMIT Obstetrics & Gynecology; ATTEND Obstetrics & Gynecology
PROC: 10D00Z1 Extraction of Products of Conception, Low, Open Approach (ICD-10-PCS; principal; 2020-02-12 04:34)
DX: O34.211 Maternal care for low transverse scar from previous cesarean delivery (principal); O98.52 Other viral diseases complicating childbirth; O24.425 Gestational diabetes mellitus in childbirth, controlled by oral hypoglycemic drugs; B00.1 Herpesviral vesicular dermatitis; O69.81X0 Labor and delivery complicated by cord around neck, without compression, not applicable or unspecified; Z37.0 Single live birth; Z3A.36 36 weeks gestation of pregnancy; Z82.49 Family history of ischemic heart disease and other diseases of the circulatory system; Z83.3 Family history of diabetes mellitus; Z79.84 Long term (current) use of oral hypoglycemic drugs
CPT/HCPCS: 59025; 85025; 86850; 86900; 86901; 88307; 99213